=== PATIENT | male | born 1985 | race Caucasian/White ===

== ENCOUNTER 2017-10-22 15:58 | Emergency (ER) | payer SELFPAY ==
[~2017-10-22] VITALS: Ht 185.4 cm; Wt 108.9 kg
[~2017-10-22 15:58] MED LIST: DILANTIN100 MG PO; DILANTIN30 MG PO; IBU800 MG PO
[2017-10-22 16:53] LABS: BASO % 0.3 % (0.0-1.0); EOS % 0.4 % (1.0-4.0); HEMATOCRIT 43.9 % (42.0-52.0); HEMOGLOBIN 15.2 g/dl (14.0-18.0); LYMPH % 20.7 % (27.0-41.0); MEAN CELL VOLUME 87.1 fl (80.0-94.0); MEAN CORPUSCULAR HGB 30.2 pg (27.0-31.0); MEAN CORPUSCULAR HGB CONC 34.6 g/dl (33.0-37.0); MEAN PLATELET VOLUME 10.3 fl (9.6-12.3); MONO # 1.1 10*3/uL (0.1-1.0); MONO % 11.3 % (3.0-9.0); NEUT # 6.4 10*3/uL (2.3-7.9); NUCLEATED RED BLOOD CELL 0.2 % (0.0-0.0); PLATELET COUNT AUTOMATED 293 10*3/uL (130-400); RED BLOOD COUNT 5.04 10*6/uL (4.50-5.90); RED CELL DISTRI WIDTH 13.2 % (0-14.5); WHITE BLOOD COUNT 9.5 10*3/uL (4.8-10.8)
[2017-10-22 17:11] LABS: ALBUMIN 4.4 gm/dl (3.1-4.5); ALKALINE PHOSPHATASE 72 U/L (45-117); CHLORIDE 103 mmol/L (98-107); SGOT/AST 42 IU/L (3-35); SGPT/ALT 55 U/L (12-78); SODIUM 136 mmol/L (136-145); TOTAL PROTEIN 8.2 gm/dL (6.4-8.2)
[2017-10-22 17:13] LABS: BUN 19 mg/dl (7-24)
[2017-10-22] MEDS ORDERED: AVPAK EXTENDED100 M1 PO ×2 (17:46→18:05)
== END 2017-10-22 17:53 | disposition home or self-care (01) ==
LOC: ED 15:58
PROVIDERS: Physician Assistant
DX: Z76.0 Encounter for issue of repeat prescription (principal); K52.9 Noninfective gastroenteritis and colitis, unspecified; Z88.1 Allergy status to other antibiotic agents; Z88.8 Allergy status to other drugs, medicaments and biological substances